=== PATIENT | male | born 1995 | race Caucasian/White ===

== ENCOUNTER → 2018-06-14 | Outpatient (CLI) | payer BC ==
--- NOTE | 2018-06-14 15:55 | Diagnostic Imaging Report ---
PROCEDURE: MRI lumbar spine. TECHNIQUE: Multiplanar, multisequence MRI of the lumbar spine was performed without contrast. INDICATION: Back pain. COMPARISON: No prior MRI studies are available for comparison. FINDINGS: Curvature and alignment of the lumbar spine is normal. Vertebral body heights are maintained. No geographic marrow lesion or acute compression fracture seen. There is normal height and signal intensity to the lumbar intervertebral discs. There is loss of height and signal intensity to the T11-T12 disc with mild degenerative disc disease. The conus is unremarkable at L1-L2 level. T11-T12: There is broad-based disc bulging slightly asymmetric to the right paracentral location. This does indent the ventral thecal sac. Central canal remains patent. There is some narrowing of the right lateral recess. Neural foramina are patent. T12-L1: No central canal or neural foraminal stenosis is identified. L1-L2: No central canal or neural foramina stenosis is identified. L2-L3: No central canal or neuroforamina stenosis is identified. L3-L4: No central canal or neural foramina stenosis is identified. L4-L5: No central canal or neural foraminal stenosis is identified. L5-S1: Central canal is widely patent. There is moderate bilateral neural foramina narrowing due to broad-based disc/osteophyte complex. Paraspinous tissues are unremarkable. IMPRESSION: 1. T11-12 degenerative disc disease with right lateral recess narrowing due to broad-based disc bulging, as described. 2. Moderate bilateral neural foramina narrowing L5-S1. No central canal stenosis is detected. Dictated by: Dictated on workstation # [id number]
== END ==
LOC: RAD 11:41
PROVIDERS: ATTEND Nurse Practitioner Family
DX: M48.07 Spinal stenosis, lumbosacral region (principal); M51.34 Other intervertebral disc degeneration, thoracic region; M51.24 Other intervertebral disc displacement, thoracic region; M48.04 Spinal stenosis, thoracic region; Q76.0 Spina bifida occulta
CPT/HCPCS: 72148